=== PATIENT | female | born 1975 | race Caucasian/White ===

== ENCOUNTER 2016-12-09 12:31 | Emergency (ER) | payer OTHER ==
[2016-12-09] MEDS ORDERED: NORMAL SALINE 1,000 ML IV ONE (12:54)
[2016-12-09] MEDS ORDERED: ONDANSETRON HCL/PF 2 MG/ML VIAL IV ONE (12:54)
[2016-12-09] MEDS ORDERED: HYDROmorphone HCL 1 MG/ML DISP.SYRIN IV ONE (12:54)
[2016-12-09] MEDS ORDERED: HYDROmorphone HCL 1 MG/ML DISP.SYRIN ONE (12:59)
[2016-12-09] MEDS ORDERED: ONDANSETRON HCL/PF 2 MG/ML VIAL ONE (13:00)
--- OUTSIDE RECORDS SUMMARY | 2016-12-09 13:20 | XMS REPORT | Continuity of Care Document ---
:1975 Author Organization [facility] ([facility]) Address [address] [place] [address] Phone [phone] Care Team Providers Name Role Phone Unavailable Primary Care Provider Unavailable Source Comments This disclosure is being made pursuant to the Care Everywhere program, applicable federal and state laws, and may not contain all informaitonavailable regarding this patient.[facility] ([facility]) Active Allergies and Adverse Reactions Not on File Current Medications Not on file Active Problems Not on file Social History Tobacco Use Types Packs/Day Years Used Date Never Assessed Plan of Care Health Maintenance Due Date Last Done Comments Hepatitis B Vaccine (1 of 3 - Primary Series) 1976 Tdap Vaccine 1987 Lipid Disorder Screening 1994 MMR Vaccine 1994 Td Vaccine 1994 Cervical Cancer Screening 2006 03/10/1997 Mammogram 2016 Influenza Vaccine: Seasonal (#1) 05/19/2016 Results from Last 3 Months Not on file
--- NOTE | 2016-12-09 13:34 | ERNOTE ---
Abdominal HPI - Narrative Date of Service: 12/09/16 - General Chief Complaint: Back Pain Time Seen by Provider: 12/09/16 12:46 Source: patient, RN notes reviewed, past records Exam Limitations: clinical condition - Immun/Allergies/Home Medications Immunizatons: IMMUNIZATION HX Immunizations Up to Date Yes History of Influenza Vaccine No Hx Pneumococcal Vaccination No Allergies/Adverse Reactions: Allergies ofloxacin [From Floxin] Allergy (Verified 12/09/16 12:43) Home Medications: HOME MEDICATIONS Cyclobenzaprine HCl [Flexeril] 10 mg PO TID PRN 12/09/16 [Last Taken Unknown] Ibuprofen [Motrin] 600 mg PO Q6H PRN #40 tab 12/09/16 [Last Taken Unknown] - Pain Score Pain Score #1 Pain Score: 10 Abdominal Pain Onset Location: RLQ, flank - History of Present Illness Narrative: Andrea is a 41 year old female who presents to the ED for right flank pain that began 2 days ago. The pain has since began radiating across her low back and into her RLQ. She was evaluated at [facility] 2 days ago, and again last night. Her work-up was inconclusive. Her labs have been normal, as well as her UA on both occasions. She had a CT of the abdomen and pelvis with contrast last night. This was without any acute findings as to the etiology of her pain. She was prescribed Flexeril but has not filled the rx. The pain is worse today. She has also started vomiting today. She has no prior history of any back problems or abdominal pathology. She does not have a PCP and states she is never sick, so she never goes to the doctor. Date (Duration): 12/07/16 Timing: getting worse Quality: severe, aching Activities at Onset: none Prior Abdominal Problems: Present: none Prior Treatment: Present: recently seen, treated by physician. Absent: recently hospitalized, currently on antibiotics Review of Systems - Review of Systems Constitutional: Absent: recent illness, fever, chills EYE: Present: no symptoms reported ENT: Present: no symptoms reported Respiratory: Absent: shortness of breath, cough Cardiology: Absent: chest pain, syncope, edema Gastrointestinal/Abdominal: Present: nausea, vomiting, abdominal pain, eating less, drinking less. Absent: diarrhea, constipation Genitourinary: Absent: frequency, dysuria, hematuria Musculoskeletal: Present: back pain. Absent: neck pain, joint pain Skin: Absent: rash, lesions Neurological: Absent: headache, dizziness/light-headedness Endocrine: Present: no symptoms reported Hematologic/Lymphatic: Present: no symptoms reported Psych: Present: no symptoms reported - Patient's Past Medical History Patient History - Medical: No pertinent hx Patient History - Cardiac/Respiratory: No pertinent hx Patient History - Cancer: No Hx of Cancer Patient History - Surgical Procedures: Tubal Ligation Patient History - Other: None LMP (Calendar): 12/01/16 - Social History Living Situations: home Abuse History: No History of abuse Psych History: No pertinent hx Smoking Status: Current every day smoker Cigarettes Packs Per Day: 1 Have you smoked in the past 12 months: Yes Alcohol Use: none Drug Use: none - Immunizations Immunizations Up to Date: Yes Hx Pneumococcal Vaccination: No History of Influenza Vaccine: No Physical Exam - Physical Exam General Appearance: Present: wd/wn, alert, moderate distress Ears, Nose, Throat: Present: hearing grossly normal Neck: Present: normal inspection, nontender, supple Respiratory: Present: no respiratory distress, normal breath sounds, no accessory muscle use, lungs clear Cardiovascular/Chest: Present: regular rate, rhythm, no murmur, normal peripheral pulses Gastrointestinal/Abdominal: Present: normal bowel sounds, nondistended, soft, tenderness - RLQ. Absent: rebound, mass Back Exam: Present: no CVA tenderness, no vertebral tenderness, CVA tenderness ( L), other - bilateral tenderness in lumbar paraspinal regions. Absent: vertebral tenderness, muscle spasm Extremity Exam: Present: normal inspection, no edema, normal range of motion Neurological Exam: Present: alert, oriented, normal mood/affect, no motor/ sensory deficits Skin Exam: Present: normal color, warm/dry ED Progress - Results and Orders Patient's Lab Results:: I have reviewed the patient's lab results. - Vital Signs Patient's Vital Signs:: I have reviewed the patient's vital signs. Vital Signs: Vital Signs 12/09/16 12:37 Temperature 35.9 C L Pulse Rate 97 Respiratory 16 Rate Blood Pressure 149/85 O2 Sat by Pulse 98 Oximetry - CT/Ultrasound CT/Ultrasound Narrative: Technique: CT Abdomen/Pelvis W/O Contrast Findings: Exam is limited due to lack of IV and oral contrast. Lungs are essentially clear. Punctate 1 mm stone within the left kidney reidentified. This is nonobstructing. No right-sided nephrolithiasis. No obstructive uropathy bilaterally. There are stable calcified pelvic phleboliths identified. Stable gallstones within a nonobstructed gallbladder. Solid abdominal organs are otherwise unremarkable. No evidence for intestinal obstruction. The appendix is normal. There is fecal retention. No pericolonic inflammatory change. No free air or free fluid. No loculated fluid collections. The bladder is unremarkable. No bladder stones. Uterus and adnexa are suboptimally evaluated but appear grossly similar to prior exam. Osseous structures are intact. IMPRESSION: 1. No nephrolithiasis or obstructive uropathy on the right. Stable punctate nonobstructing left-sided nephrolith. No obstructive uropathy on the left. 2. Otherwise no identifiable acute intra-abdominal or pelvic process. Findings are similar to prior exam and detailed above. Electronically signed by Scooter Echavarria M.D.. - Progress/Reassessment Chief Complaint: Back Pain Progress:: Improved Plan - Plan Plan: UA with hematuria, CT stone protocol done as her CT with contrast last night may not have shown a stone. CT unremarkable. To take Tylenol and ibuprofen for back pain, along with Flexeril as needed. D/C'd home with magnesium citrate. Back pain seems to be musculoskeletal in etiology with her abdominal pain possibly d/t fecal retention. Departure - Departure Clinical Impression: Right lower quadrant abdominal pain Low back pain Qualifiers: Chronicity: acute Back pain laterality: bilateral Sciatica presence: unspecified whether sciatica present Qualified Code(s): M54.5 - Low back pain Fecal retention Qualifiers: Constipation type: unspecified constipation type Qualified Code(s): K59.00 - Constipation, unspecified Disposition: Home Follow Up Needed Condition: Stable Instructions: Back Pain, Adult, [id number], Form - Excuse from Work, School, or Physical Activity Additional Instructions: Take ibuprofen every 6 hours with food Can also take Tylenol (acetaminophen) Take Flexeril as needed - 1 tablet every 8 hours Drink entire bottle of magnesium citrate when you get home Establish with a primary care provider for routine health maintenance/prevention Prescriptions: Ibuprofen [Motrin] 600 mg PO Q6H PRN #40 tab PRN Reason: Pain
[2016-12-09] MEDS ORDERED: KETOROLAC TROMETHAMINE 30 MG/ML VIAL IV ONE (13:40)
[2016-12-09 13:50] LABS: Hematocrit 39.3 % (37.0-47.0); Hemoglobin 13.1 gm/dL (12.5-16.0); Mean Cell Volume 87.9 fl (78-100); Mean Corpuscular Hemoglobin 29.3 pg (27-31); Mean Corpuscular Hgb Conc 33.3 g/dl (32-36); Mean Platelet Volume 9.6 fl (6.0-9.5); Neutrophil % 69.1 % (42-75.0); Platelet Count 271 K/mm3 (150-450); Red Blood Count 4.47 M/mm3 (4.2-5.4); Red Cell Distribution Width 13.2 % (11.5-14.0); White Blood Count 5.8 K/mm3 (4.0-10.5)
[2016-12-09 13:52] LABS: Urine Bilirubin Negative (NEGATIVE); Urine Blood 50 /ul (NEGATIVE); Urine Ketone Negative (NEGATIVE); Urine Nitrite Negative (NEGATIVE); Urine Protein Negative (NEGATIVE); Urine Specific Gravity 1.015 SP.GR. (1.005-1.010); Urine Urobilinogen Normal (NORMAL); Urine pH 7.5 pH (5.0-7.0)
[2016-12-09 13:58] LABS: ALT 26 U/L (19-67); AST 18 U/L (0-48); Albumin * 3.5 gm/dl (3.4-5.0); Alkaline Phosphatase * 66 U/L (50-170); BUN/Creatinine Ratio 20.6 (9.0-21.6); Bilirubin, Total 0.1 mg/dL (0.0-1.1); Blood Urea Nitrogen 13 mg/dL (3-23); Ca. Corrected For Albumin 8.9 mg/dL (8.4-10.2); Calcium * 8.8 mg/dL (7.9-10.9); Carbon Dioxide 30.6 mmol/L (24-32.6); Chloride 106 mmol/L (97-106); Glucose * 93 mg/dL (70-110); Potassium 4.6 mmol/L (3.4-4.6); Sodium 142 mmol/L (132-142); Total Protein 7.2 gm/dL (6.2-8.2)
[2016-12-09 14:01] LABS: Urine Appearance Clear; Urine Bacteria None Seen; Urine Color Pale Yellow; Urine WBC TRACE /hpf (0-5)
[2016-12-09] MEDS ORDERED: KETOROLAC TROMETHAMINE 30 MG/ML VIAL ONE (14:04)
[2016-12-09 14:49] VITALS: BP 104/56
[2016-12-09] MEDS ORDERED: MAGNESIUM CITRATE 300 ML BTL ONE (15:41)
[2016-12-09] MEDS ORDERED: MAGNESIUM CITRATE 300 ML BTL PO ONE (15:41)
== END 2016-12-09 15:46 | disposition home or self-care (01) ==
LOC: ER 12:31
DX: K59.00 Constipation, unspecified (principal); M54.5 Low back pain; R10.31 Right lower quadrant pain; F17.210 Nicotine dependence, cigarettes, uncomplicated